=== PATIENT | female | born 1950 | race Caucasian/White ===

== ENCOUNTER 2021-01-30 12:31 | Inpatient (IN) | payer MEDICARE, BC ==
[2021-01-30] VITALS (12 sets, daily range): BP systolic 54–100; BP diastolic 20–76
[~2021-01-30] VITALS: Ht 157.5 cm; Wt 61.7 kg
--- NOTE | 2021-01-30 12:31 | NUR ---
PT KANDY FROM [facility]. PER EMS 911 WAS CALLED FOR NOTED SOB AND HYPOXIA. PT CODED WHILE BEING TRANSPORTED TO ED. IO WAS STARTED BY PARAMEDICS AND FIRST ROUND EPINEPRINE WAS GIVEN. PT TAKEN STRAIGHT TO ED BED 05.
--- NOTE | 2021-01-30 12:32 | NUR ---
PT ARRIVED ON CARDIOPULMONARY ARREST. SEE CARDIOPULMONARY ARREST RECORD.
--- NOTE | 2021-01-30 12:41 | NUR ---
RT PT CODED DURING TRANSPORT. UPON ARRIVAL, CPR WAS BEING PEFORMED BY PARAMEDICS. RTS AND RNS TOOK OVER CARE. PT ORALLY INTUBATED BY ER DOCTOR WITH 7.5 ETT SECURED 24CM AT THE LIP. PLACED PT ON [facility] VENT WITH SETTINGS PER MD ORDER. VENT SETTINGS: AC 20, 450, 100%, +5. BILATERAL BREATH SOUNDS ON AUSCULTATION. VENT PLUGGED INTO RED OUTLET. ALARMS ON AND WORKING PROPERLY. AMBU BAG AT HEAD OF BED. WILL CONTINUE TO MONITOR THE PATIENT CLOSELY.
--- NOTE | 2021-01-30 12:46 | NUR ---
CALLED FOR ICU BED.
[2021-01-30] MEDS ORDERED: EPINEPHRINE (1:10,000) SYRINGE 1 MG/10 ML DISP.SYRIN ONE ×2 (12:49→13:10)
[2021-01-30] MEDS ORDERED: CALCIUM CHLORIDE 1,000 MG/10 ML DISP.SYRIN ONE ×2 (12:50→13:11)
--- NOTE | 2021-01-30 13:00 | NUR ---
pt child day care teacher left pt's sister phone # [phone]. hu.
[2021-01-30] MEDS ORDERED: Sodium Bicarbonate 50 MEQ/50 ML VIAL IV ONE (13:10)
[2021-01-30] MEDS ORDERED: NOREPINEPHRINE 4 MG/4 ML AMPUL IV ONE ×2 (13:12→14:15)
[2021-01-30] MEDS ORDERED: RISP0.5T65 PO (13:25)
[2021-01-30] MEDS ORDERED: ATOR20TA PO (13:25)
--- NOTE | 2021-01-30 13:25 | NUR ---
LEVOPHED STARTED AT 0.1 MCG/KG/MIN. TITRATE TO EFFECT.
[2021-01-30] MEDS ORDERED: CEFEPIME 1 GM in IV D5W 50 ML IV ONE (13:30)
[2021-01-30] MEDS ORDERED: VANCOMYCIN 1 GM in IV D5W 250 ML IV ONE (13:30)
[2021-01-30] MEDS ORDERED: NOREPINEPHRINE 8 MG in IV D5W 492 ML IV PRN (13:30)
[2021-01-30] MEDS ORDERED: IV NS 0.9% 1,000 ML BAG IV ONE (13:30)
[2021-01-30] MEDS ORDERED: IPRATROPIUM NEB FS 0.5 MG/2.5 ML AMPUL.NEB ONE (13:33)
[2021-01-30] MEDS ORDERED: ALBUTEROL FS 2.5 MG/3 ML VIAL.NEB ONE (13:33)
[2021-01-30 13:59] LABS: BASOPHILS # (AUTO) 0.2 K/uL (0.0-0.2); BASOPHILS % (AUTO) 0.5 % (0.0-2.0); EOSINOPHILS % (AUTO) 0.5 % (0.0-6.0); HEMATOCRIT 35 % (33-45); HEMOGLOBIN 10.5 g/dL (11.5-14.8); LYMPHOCYTES # (AUTO) 4.7 K/uL (0.8-4.8); LYMPHOCYTES % (AUTO) 9.6 % (20.0-44.0); MEAN CORPUSCULAR HGB CONC 30 g/dl (31.0-36.0); MEAN CORPUSCULAR VOLUME 100 fL (82-100); MONOCYTES # (AUTO) 0.9 K/uL (0.1-1.30); MONOCYTES % (AUTO) 1.9 % (2.0-12.0); NEUTROPHILS # (AUTO) 42.8 K/uL (1.8-8.9); NEUTROPHILS % (AUTO) 87.5 % (43.0-81.0); PLATELET COUNT (AUTO) 347 K/uL (150-450); RED BLOOD CELL COUNT(AUTO) 3.55 MIL/uL (4.0-5.2)
[2021-01-30] MEDS ORDERED: IPRATROPIUM NEB FS 0.5 MG/2.5 ML AMPUL.NEB NEB ONE (14:00)
[2021-01-30] MEDS ORDERED: methylPREDNISolone SOD SUCC 125 MG/2ML VIAL IV ONE (14:00)
[2021-01-30] MEDS ORDERED: ALBUTEROL FS 2.5 MG/3 ML VIAL.NEB CONTNEB ONE (14:00)
[2021-01-30 14:02] LABS: WHITE BLOOD COUNT (AUTO) 48.9 K/uL (4.3-11.0)
[2021-01-30 14:10] LABS: CARBON DIOXIDE 19 mmol/L (21-32); CHLORIDE 109 mmol/L (98-107); CREATININE 1.5 mg/dL (0.6-1.3); GLUCOSE 254 mg/dL (74-106); POTASSIUM 4.4 mmol/L (3.5-5.1); SODIUM SERUM 144 mmol/L (136-145); UREA NITROGEN, BLOOD 21 mg/dL (7-18)
[2021-01-30 14:22] LABS: ALANINE AMINOTRANSFERASE 993 U/L (12-78); ALBUMIN 1.5 g/dL (3.4-5.0); ALKALINE PHOSPHATASE 179 U/L (46-116); ASPARTATE AMINOTRANSFERASE 393 U/L (15-37); BILIRUBIN,DIRECT 0.2 mg/dL (0.0-0.2); BILIRUBIN,TOTAL 0.4 mg/dL (0.2-1.0); CALCIUM, SERUM 10.3 mg/dL (8.5-10.1); TOTAL PROTEIN, SERUM 5.3 g/dL (6.4-8.2)
[2021-01-30] MEDS ORDERED: ASPIRIN 300 MG/SUPP.RECT RC ONE ×2 (14:30→15:07)
[2021-01-30] MEDS ORDERED: methylPREDNISolone SOD SUCC 125 MG/2ML VIAL ONE (14:35)
--- NOTE | 2021-01-30 14:42 | NUR ---
REPORT GIVEN TO EVAN CONNELL AT ICU. AWAITING TRANSSFER TO FLOOR.
[2021-01-30] MEDS ORDERED: PROPOFOL 100 ML IV PRN (15:00)
--- NOTE | 2021-01-30 15:07 | NUR ---
RT ABG DONE PER MD ORDER. ABG RESULTS SHOWN TO DR. YEUNG. NO CHANGES AT THIS TIME.
[2021-01-30 15:08] LABS: ABG BASE EXCESS -12.5 mmol/L; ABG PCO2 42.8 mmHg (35.0-45.0); ABG PH 7.173 (7.350-7.450); ABG PO2 147.5 mmHg (75.0-100.0); COHb 0.3 % (0.5-1.5); MetHb 0.5 % (0.0-1.5); O2Hb 97.4 % (94.0-97.0); PEEP,BG 5 cm H2O; SITE, ABG Left Brachial; VT, ABG 450 mL
--- NOTE | 2021-01-30 15:10 | NUR ---
PT ARRIVED IN ICU AT THIS TIME VIA GURNEY. PT IS ON VENTILATOR AND LEVOPHED GTT. PT IS NOT CONSCIOUS OR ABLE TO COMMUNICATE AT THIS TIME. WILL CONTINUE TO MONITOR.
--- NOTE | 2021-01-30 15:24 | NUR ---
THE PATIENT IS TRANSFERED TO ASSIGNED ROOM PER [facility] POLICY
[2021-01-30] MEDS ORDERED: ONDANSETRON HCL/PF 4 MG/2 ML VIAL IVP PRN (15:30)
[2021-01-30] MEDS ORDERED: IV D5/0.45 NACL 1,000 ML IV PRN (15:30)
[2021-01-30] MEDS ORDERED: NOREPINEPHRINE 8 MG in IV NS 0.9% 242 ML IV PRN ×2 (15:30→18:00)
[2021-01-30] MEDS ORDERED: ACETAMINOPHEN 650 MG/SUPP.RECT RC PRN (15:30)
[2021-01-30] MEDS ORDERED: FENTANYL CITRATE/PF 1,250 MCG in IV NS 0.9% 225 ML IV PRN (15:30)
[2021-01-30] MEDS ORDERED: MIDAZOLAM HCL 100 MG in IV NS 0.9% 80 ML IV PRN (15:30)
[2021-01-30] MEDS ORDERED: CEFEPIME 1 GM in IV D5W 50 ML IV SCH (15:30)
[2021-01-30] MEDS ORDERED: Z GUARD REMEDY 2 OZ OINT TP PRN (15:30)
[2021-01-30] MEDS ORDERED: EPINEPHRINE (1:10,000) SYRINGE 1 MG/10 ML DISP.SYRIN IVP ONE (15:39)
[2021-01-30] MEDS ORDERED: SODIUM BICARBONATE SYR 50 MEQ/50 ML DISP.SYRIN IV ONE (15:40)
[2021-01-30] MEDS ORDERED: ASPI-1169 PO (15:40)
[2021-01-30] MEDS ORDERED: LACT-246 PO (15:40)
[2021-01-30] MEDS ORDERED: THIA100T88 PO (15:40)
[2021-01-30] MEDS ORDERED: MAG-55 PO (15:40)
[2021-01-30] MEDS ORDERED: ACET325T53 PO (15:40)
[2021-01-30] MEDS ORDERED: MAGN400O6 PO (15:40)
[2021-01-30] MEDS ORDERED: AMIODARONE 150 MG/3 ML VIAL IV ONE (15:41)
[2021-01-30 15:44] LABS: BAND % (MANUAL) 15 % (0.0-5.0); LYMPHOCYTES % (MANUAL) 14 % (16-48); MONOCYTES % (MANUAL) 4 % (0-11.0); NEUTROPHILS % (MANUAL) 67 (42-76)
[2021-01-30] MEDS ORDERED: HYDROCORTISONE SOD SUCCINATE 100 MG/2 ML VIAL IV SCH (17:00)
--- NOTE | 2021-01-30 17:12 | NUR ---
PT'S NIECE FLAKITO MCINTOSH ([phone]) HERE, STATED THAT REGAN GOMEZ ([phone]) IS PATIENT'S POA. RN SPOKE TO REGAN GOMEZ OVER THE PHONE. REGAN INFORMED RN THAT HE WOULD LIKE FLAKITO MCINTOSH TO MAKE DECISIONS FOR PATIENTS CARE. SOLOMON OLMEDO POLICE OFFICER AWARE. FLAKITO STATED THAT PATIENT WOULD NOT WANT TO BE KEPT ALIVE ON THE VENTILATOR AND WISHES TO MAKE PATIENT A DNR AND AFTER PATIENTS BROTHER IN LAW ARRIVES [facility] WOULD LIKE TO MAKE PATIENT COMFORT MEASURES, IF SHE IS STILL ALIVE AT THAT POINT. SOLOMON OLMEDO POLICE OFFICER AT BEDSIDE AT THIS TIME SPEAKING TO FLAKITO.
[2021-01-30] MEDS ORDERED: SCOPOLAMINE PATCH 1 MG/72HR TD SCH (18:00)
[2021-01-30] MEDS ORDERED: LORAZEPAM INJ 2 MG/ML VIAL IV PRN (18:00)
[2021-01-30] MEDS ORDERED: MORPHINE SULFATE INJ 2 MG/ML DISP.SYRIN IV PRN (18:00)
--- NOTE | 2021-01-30 19:29 | NUR ---
END OF SHIFT NOTE: PT'S FAMILY AT BEDSIDE. PT IS A DNR, TO BE COMFORT MEASURES WHEN BROTHER IN LAW ARRIVES, IF PATIENTS SURVIVES TILL THEN. PT'S NIECE FLAKITO AWARE THAT PATIENT MAY NOT MAKE IT TILL THEN. LEVOPHED IS MAX'D AT 1MCG/KG/MIN, NO FURTHER DRIPS WILL BE STARTED PER MD ORDERS. NO BP OBTAINED AT THIS TIME. PT CHECKED ON FREQUENTLY AND PRN BY NURSING STAFF.
--- NOTE | 2021-01-30 20:28 | NUR ---
RN NOTE PT AT 1945. NO AUDIBLE HEART TONES, NO PALPABLE PULSES. NO PUPILLARY LIGHT REFLEX. PT NOT RESPONSIVE TO ANY STIMULI. PRONOUNCED BY ORE FIELDER, RENEE. FAMILY AT BEDSIDE. RT TOOK OFF MECHANICAL VENTILATOR. DR FIGUEROA AND HEALTHCARE RISK CONTROL CONSULTANT MADE AWARE. POSTMORTEM CARE DONE. PER PT NIECE, STILL WAITING FOR THE THE PTS BROTHER IN LAW TO COME.
[2021-01-30] MEDS ORDERED: HEPARIN SODIUM, PORCINE 5000 UNITS/1 ML VIAL SQ SCH (21:00)
--- NOTE | 2021-01-30 21:00 | NUR ---
RN NOTE 1957 CALLED [facility], SPOKE TO PRICILLA WITH REFERRAL ID [id number]. RECEIVED A CALL BACK FROM THE [facility] AT 2054, OK TO RELEASE BODY.
--- NOTE | 2021-01-30 21:20 | NUR ---
PRONOUNCEMENT OF : CODE STATUS "DO NOT RESUSCITATED". PT. UNRESPONSIVE TO ANY FORM OF STIMULI. PUPILS ARE FIXED AND DILATED.RESPIRATION=ZERO. EKG X2 LEADS ASYSTOLE. HEART TONES ARE ABSENT. PERIPHERAL PULSES NON-PALPABLE.NO SIGNS OF LIFE.PT. PRONOUNCED AT 194. BY:BENNIE BROWNE/VERONICAN
[2021-01-31] MEDS ORDERED: CEFEPIME 2 GM in IV D5W 100 ML IV SCH (09:00)
[2021-01-31] MEDS ORDERED: VANCOMYCIN 0.75 GM in IV D5W 250 ML IV SCH (15:00)
== END 2021-01-30 21:39 | DRG 871 ==
LOC: ER 12:33 → ICU 14:43
PROVIDERS: ADMIT Nurse Practitioner Family; ATTEND Nurse Practitioner Family
PROC: 5A09357 Assistance with Respiratory Ventilation, Less than 24 Consecutive Hours, Continuous Positive Airway Pressure (ICD-10-PCS; principal; 2021-01-30)
PROC: 5A1935Z Respiratory Ventilation, Less than 24 Consecutive Hours (ICD-10-PCS; 2021-01-30)
PROC: 0BH17EZ Insertion of Endotracheal Airway into Trachea, Via Natural or Artificial Opening (ICD-10-PCS; 2021-01-30)
DX: A41.9 Sepsis, unspecified organism (principal); J96.01 Acute respiratory failure with hypoxia; J18.9 Pneumonia, unspecified organism; R65.21 Severe sepsis with septic shock; N17.0 Acute kidney failure with tubular necrosis; K72.00 Acute and subacute hepatic failure without coma; E43 Unspecified severe protein-calorie malnutrition; I21.4 Non-ST elevation (NSTEMI) myocardial infarction; E87.2 Acidosis; J98.11 Atelectasis; Z66 Do not resuscitate; Z20.822 Contact with and (suspected) exposure to COVID-19; I46.9 Cardiac arrest, cause unspecified; I10 Essential (primary) hypertension; F41.9 Anxiety disorder, unspecified; Z90.81 Acquired absence of spleen; Z79.899 Other long term (current) drug therapy; Z86.73 Personal history of transient ischemic attack (TIA), and cerebral infarction without residual deficits; I49.01 Ventricular fibrillation; Y95 Nosocomial condition; Z51.5 Encounter for palliative care; F03.90 Unspecified dementia, unspecified severity, without behavioral disturbance, psychotic disturbance, mood disturbance, and anxiety; D72.823 Leukemoid reaction; E78.5 Hyperlipidemia, unspecified; F25.9 Schizoaffective disorder, unspecified; N26.1 Atrophy of kidney (terminal); I70.8 Atherosclerosis of other arteries
CPT/HCPCS: 31720; 36415; 36600; 71045-TC; 80048-TC; 80076-TC; 82533; 82803-TC; 83605-TC; 83880; 84484-TC; 85025-TC; 85730-TC; 86850-TC; 87040-TC; 87081-TC; 92950-TC; 94002-TC; 94799-TC; 99082-TC; A6403; G0378; J0171; J0282; J0692; J2930; J3370; J3490; J7030; J7040; J7050; J7060; U0003